=== PATIENT | female | born 1965 | race Caucasian/White ===

== ENCOUNTER 2018-03-11 17:51 | Inpatient (IN) | END 2018-03-25 16:30 | disposition home health service (06) | DRG 560 ==

== ENCOUNTER 2018-12-29 11:57 | Day surgery (SDC) | payer OTHER ==
[~2018-12-29] VITALS: Ht 170.2 cm; Wt 85.9 kg
[~2018-12-29 11:57] MED LIST: AMLODIPINE; ASPIRIN; ATORVASTATIN; CENTRUM; FLUTICASONE; HYDROXYZINE; IBUPROFEN; MELATONIN; MIRTAZAPINE; OMEP40CA3 PO; OXYCODONE; RANITIDINE; VENTOLIN INHALER; VIT D3; [UNRECOGNIZED DRUG - CODE] PO
[2018-12-29 12:59] VITALS: BP 120/55; PULSE 86; RESP 18
[2018-12-29] MEDS ORDERED: LIDOCAINE 2% (SDV) 5 ML INJ ONE (13:37)
[2018-12-29] MEDS ORDERED: PROPOFOL 60 ML ONE (13:37)
[2018-12-29 14:29] VITALS: BP 121/89; PULSE 82; RESP 16
[2018-12-29 14:44] VITALS: BP 108/62; PULSE 76; RESP 16
== END 2018-12-29 16:09 | disposition home or self-care (01) ==
LOC: GIL 11:57
PROVIDERS: ATTEND Internal Medicine Gastroenterology
DX: Z12.11 Encounter for screening for malignant neoplasm of colon (principal); D12.0 Benign neoplasm of cecum; K64.8 Other hemorrhoids; I10 Essential (primary) hypertension; E11.9 Type 2 diabetes mellitus without complications; J44.9 Chronic obstructive pulmonary disease, unspecified; Z79.82 Long term (current) use of aspirin
CPT/HCPCS: 45380; 88305; Z7610